=== PATIENT | male | born 1955 | race Caucasian/White ===

== ENCOUNTER → 2017-02-05 | Outpatient (CLI) | payer BC ==
[2014-10-28 14:07] VITALS: BP 144/72
--- NOTE | 2017-02-05 15:24 | CARD ---
APPROVED REPORT EXAM: Two-dimensional and M-mode echocardiogram with Doppler and color Doppler. Other Information Quality : Average Rhythm : NSR INDICATION Atrial Fibrillation 2D DIMENSIONS RVDd3.5 (2.9-3.5cm)Left Atrium(2D)3.8 (1.6-4.0cm) IVSd1.0 (0.7-1.1cm)Aortic Root(2D)3.5 (2.0-3.7cm) LVDd5.2 (3.9-5.9cm)LVOT Diameter2.2 (1.8-2.4cm) PWd1.0 (0.7-1.1cm)LVDs3.7 (2.5-4.0cm) FS (%) 28.2 %SV70.3 ml LVEF(%)54.2 (>50%) Aortic Valve AoV Peak Nirav.92.2cm/sAoV VTI18.7cm AO Peak GR.3.4mmHgLVOT Peak Nirav.70.9cm/s LVOT VTI 14.46cmAO Mean GR.2mmHg JOE (VMAX)2.62yf1AOC (VTI)2.98cm2 Mitral Valve MV E Avodbkyk45.2cm/sMV DECEL WBHV463sj MV A Wwdrsyhx90.3cm/sMV IFV67jl E/A Ratio0.7MV A Njbkmknq234bu MVA (PHT)2.62cm2 TDI E/Lateral E'8.9E/Medial E'10.7 Pulmonary Valve PV Peak Yuitayxi24.4cm/sPV Peak Grad.3mmHg RVOT VTI16.4cm Tricuspid Valve TR P. Djbwabdb578ol/sRAP ULXLNYMW0szYa TR Peak Gr.96hfBwUHEE92mjKn LEFT VENTRICLE The left ventricle is normal size. There is normal left ventricular wall thickness. Left ventricle sy stolic function is normal. The Ejection Fraction is 50-55%. There is normal LV segmental wall motion. Tissue Doppler imaging reveals mild left ventricular diastolic dysfunction. Transmitral Doppler flow pattern is Grade I-abnormal relaxation pattern. There is no ventricular septal defect visualized. RIGHT VENTRICLE The right ventricle is normal size. The right ventricular systolic function is normal. ATRIA The left atrium size is normal. The right atrium size is normal. The interatrial septum is intact wit h no evidence for an atrial septal defect or patent foramen ovale as noted on 2-D or Doppler imaging. AORTIC VALVE The aortic valve is normal in structure and function. The aortic valve is trileaflet. Doppler and Col or Flow revealed no significant aortic regurgitation. There is no significant aortic valvular stenosi s. MITRAL VALVE The mitral valve leaflets are thickened. There is no mitral valve stenosis. Doppler and Color Flow re vealed trace to mild mitral regurgitation. TRICUSPID VALVE The tricuspid valve is normal in structure and function. Doppler and Color Flow revealed trace tricus pid regurgitation. The PA pressure was estimated at 24 mmHg. There is no tricuspid valve stenosis. PULMONIC VALVE The pulmonic valve is not well visualized. Doppler and Color Flow revealed no pulmonic valvular regur gitation. There is no pulmonic valvular stenosis. GREAT VESSELS The aortic root is normal in size. The ascending aorta is normal in size. Normal pulmonary venous judie w (Doppler). The IVC is normal in size and collapses >50% with inspiration. PERICARDIAL EFFUSION There is no evidence of significant pericardial effusion. Critical Notification Critical Value: No <Conclusion> Left ventricle systolic function is normal. The Ejection Fraction is 50-55%. There is normal LV segmental wall motion. Transmitral Doppler flow pattern is Grade I-abnormal relaxation pattern. Trace to mild mitral regurgitation. Trace tricuspid regurgitation. The PA pressure was estimated at 24 mmHg. There is no evidence of significant pericardial effusion.
== END | disposition home or self-care (01) ==
LOC: ECHO 09:47
PROVIDERS: ATTEND Internal Medicine Cardiovascular Disease
DX: I08.1 Rheumatic disorders of both mitral and tricuspid valves (principal); I48.0 Paroxysmal atrial fibrillation
CPT/HCPCS: 93306

== ENCOUNTER → 2018-03-03 | Outpatient (CLI) | payer OTHER ==
[2014-10-28 14:07] VITALS: BP 144/72
--- NOTE | 2018-03-03 11:45 | CARD ---
MR#: [id number] Date of Study: 03/03/2018 Ordering Physician: PARDEEP BONNER, Referring Physician: PARDEEP BONNER Tech: Rhonda Shetty RDCS APPROVED REPORT EXAM: Two-dimensional and M-mode echocardiogram with Doppler and color Doppler. Other Information Quality : GoodHR: 64bpm Rhythm : NSR INDICATION Atrial Fibrillation RISK FACTORS Hypertension Smoking 2D DIMENSIONS RVDd3.6 (2.9-3.5cm)Left Atrium(2D)3.2 (1.6-4.0cm) IVSd1.2 (0.7-1.1cm)Aortic Root(2D)3.9 (2.0-3.7cm) LVDd5.4 (3.9-5.9cm)LVOT Diameter2.5 (1.8-2.4cm) PWd1.0 (0.7-1.1cm)LVDs3.7 (2.5-4.0cm) FS (%) 30.6 %SV80.9 ml LVEF(%)57.6 (>50%) M-Mode DIMENSIONS Left Atrium(MM)3.71 (2.5-4.0cm)Aortic Root3.51 (2.2-3.7cm) Aortic Valve AoV Peak Nirav.107.9cm/sAoV VTI23.1cm AO Peak GR.4.7mmHgLVOT Peak Nirav.84.3cm/s AO Mean GR.3mmHgAVA (VMAX)3.78cm2 JOE (VTI)3.90cm2 Mitral Valve MV E Spmytqfb84.7cm/sMV E Peak Gr.3mmHg MV DECEL UETK983apKW A Ximpqcwb933.5cm/s MV E Mean Gr.1mmHgE/A Ratio0.7 MV A Mvdcetiz521yt Pulmonary Valve PV Peak Hfwaqlwj02.9cm/s Pulmonary Vein S1 Lpoypxzy25.2cm/sD2 Ktcxkzmk15.3cm/s PVa ouqfbihp756cxjr LEFT VENTRICLE The left ventricle is normal size. There is borderline concentric left ventricular hypertrophy. The l eft ventricular systolic function is normal and the ejection fraction is within normal range. The Eje ction Fraction is 55-60%. There is normal LV segmental wall motion. The left ventricular diastolic fu nction and filling is normal for age. RIGHT VENTRICLE The right ventricle is normal size. There is normal right ventricular wall thickness. The right ventr icular systolic function is normal. ATRIA The left atrium size is normal. The right atrium size is normal. The interatrial septum is intact wit h no evidence for an atrial septal defect or patent foramen ovale as noted on 2-D or Doppler imaging. AORTIC VALVE The aortic valve is thickened but opens well. Doppler and Color Flow revealed no significant aortic r egurgitation. There is no significant aortic valvular stenosis. MITRAL VALVE The mitral valve is normal in structure and function. There is no evidence of mitral valve prolapse. There is no mitral valve stenosis. Doppler and Color-flow revealed trace mitral regurgitation. TRICUSPID VALVE The tricuspid valve is normal in structure and function. Doppler and Color Flow revealed trace tricus pid regurgitation. There is no tricuspid valve prolapse or vegetation. There is no tricuspid valve st enosis. PULMONIC VALVE The pulmonary valve is normal in structure and function. Doppler and Color Flow revealed trace pulmon ic valvular regurgitation. There is no pulmonic valvular stenosis. GREAT VESSELS The aortic root is normal in size. The IVC is normal in size and collapses >50% with inspiration. PERICARDIAL EFFUSION There is no evidence of significant pericardial effusion. Critical Notification Critical Value: No <Conclusion> The left ventricular systolic function is normal and the ejection fraction is within normal range. Th e Ejection Fraction is 55-60%. There is normal LV segmental wall motion. Signed by : Johnny Ward, Electronically Approved : 03/03/2018 11:44:43
== END | disposition home or self-care (01) ==
LOC: ECHO 10:24
PROVIDERS: ATTEND Internal Medicine Cardiovascular Disease
DX: I48.0 Paroxysmal atrial fibrillation (principal); I10 Essential (primary) hypertension; F17.200 Nicotine dependence, unspecified, uncomplicated
CPT/HCPCS: 93306

== ENCOUNTER → 2019-02-24 | Outpatient (CLI) | payer OTHER ==
[2014-10-28 14:07] VITALS: BP 144/72
--- NOTE | 2019-02-24 15:18 | CARD ---
MR#: [id number] Date of Study: 02/24/2019 Ordering Physician: PARDEEP BONNER, Referring Physician: PARDEEP BONNER Tech: Rhonda Shetty RDCS APPROVED REPORT EXAM: Two-dimensional and M-mode echocardiogram with Doppler and color Doppler. Other Information Quality : AverageHR: 76bpm Rhythm : PVC's INDICATION Atrial Fibrillation 2D DIMENSIONS RVDd3.2 (2.9-3.5cm)Left Atrium(2D)3.5 (1.6-4.0cm) IVSd1.3 (0.7-1.1cm)Aortic Root(2D)3.6 (2.0-3.7cm) LVDd5.1 (3.9-5.9cm)LVOT Diameter2.3 (1.8-2.4cm) PWd1.1 (0.7-1.1cm)LVDs3.6 (2.5-4.0cm) FS (%) 29.0 %SV69.4 ml LVEF(%)55.4 (>50%) M-Mode DIMENSIONS Left Atrium(MM)4.13 (2.5-4.0cm)Aortic Root3.29 (2.2-3.7cm) Aortic Valve AoV Peak Nirav.144.9cm/sAoV VTI25.3cm AO Peak GR.8.4mmHgLVOT Peak Nirav.96.8cm/s AO Mean GR.4mmHgAVA (VMAX)2.82cm2 JOE (VTI)2.80cm2 Mitral Valve MV E Ngxhymox53.7cm/sMV DECEL NCNB884ja MV A Ukvfitfq488.5cm/sE/A Ratio0.7 MV A Hpcwukrd577xw Pulmonary Valve PV Peak Hxdtfmkj41.2cm/s Tricuspid Valve TR P. Wkkhbsbq466vn/sRAP HNGDBPBR5avVv TR Peak Gr.94kfBkWFIH70mmRn LEFT VENTRICLE The left ventricle is normal size. There is mild concentric left ventricular hypertrophy. The left ve ntricular systolic function is normal and the ejection fraction is within normal range. The Ejection Fraction is 55-60%. There is normal LV segmental wall motion. Transmitral Doppler flow pattern is Gra de I-abnormal relaxation pattern. RIGHT VENTRICLE The right ventricle is normal size. There is normal right ventricular wall thickness. The right ventr icular systolic function is normal. ATRIA The left atrium size is normal. The right atrium size is normal. The interatrial septum is intact wit h no evidence for an atrial septal defect or patent foramen ovale as noted on 2-D or Doppler imaging. AORTIC VALVE The aortic valve is normal in structure and function. The aortic valve is trileaflet. Doppler and Col or Flow revealed no significant aortic regurgitation. There is no significant aortic valvular stenosi s. There is no aortic valvular vegetation. MITRAL VALVE The mitral valve is thickened but opens well. There is no evidence of mitral valve prolapse. There is no mitral valve stenosis. Doppler and Color-flow revealed mild mitral regurgitation. TRICUSPID VALVE The tricuspid valve is normal in structure and function. Doppler and Color Flow revealed trace tricus pid regurgitation. The PA pressure was estimated at 26 mmHg. There is no tricuspid valve prolapse or vegetation. There is no tricuspid valve stenosis. PULMONIC VALVE The pulmonic valve is not well visualized. GREAT VESSELS The aortic root is normal in size. The ascending aorta is normal in size. The IVC is normal in size a nd collapses >50% with inspiration. PERICARDIAL EFFUSION There is no evidence of significant pericardial effusion. Critical Notification Critical Value: No <Conclusion> The left ventricle is normal size. The left ventricular systolic function is normal and the ejection fraction is within normal range. The Ejection Fraction is 55-60%. There is mild concentric left ventricular hypertrophy. There is no significant aortic valvular stenosis. Doppler and Color Flow revealed no significant aortic regurgitation. Doppler and Color-flow revealed mild mitral regurgitation. Doppler and Color Flow revealed trace tricuspid regurgitation. The PA pressure was estimated at 26 mmHg. Signed by : Arcadio Hernandez MD Electronically Approved : 02/24/2019 15:18:02
== END | disposition home or self-care (01) ==
LOC: ECHO 13:41
PROVIDERS: ATTEND Internal Medicine Cardiovascular Disease
DX: I34.0 Nonrheumatic mitral (valve) insufficiency (principal); I11.9 Hypertensive heart disease without heart failure; I48.0 Paroxysmal atrial fibrillation
CPT/HCPCS: 93306

== ENCOUNTER → 2019-03-30 | Outpatient (CLI) | payer OTHER ==
[2014-10-28 14:07] VITALS: BP 144/72
--- NOTE | 2019-03-30 14:36 | RAD ---
MR#: [id number] Date of Study: 03/30/2019 Ordering Physician: PARDEEP BONNER, Referring Physician: PARDEEP BONNER, Tech: Guido Mason MBA, RDMS, RVT, RDCS, RTR APPROVED REPORT Patient Location : OUT-PATIENT Indications Lower Extremity Pain : Bilateral Findings Grayscale images of the bilateral greater saphenous veins are grossly unremarkable. The right great saphenous vein measures 5.7 mm and the left great saphenous vein measures 4.6 m. No e vidence of reflux in the bilateral greater saphenous veins. No reflux in the bilateral lesser saphenous veins. Critical Notification Critical Value: No <Conclusion> Negative for reflux. Signed by : Johnny Ward, Electronically Approved : 03/30/2019 14:36:19
== END | disposition home or self-care (01) ==
LOC: US 14:25
PROVIDERS: ATTEND Internal Medicine Cardiovascular Disease
DX: M79.604 Pain in right leg (principal); M79.605 Pain in left leg
CPT/HCPCS: 93970

== ENCOUNTER → 2019-11-03 | Outpatient (CLI) | payer MEDICARE, BC ==
[2014-10-28 14:07] VITALS: BP 144/72
[~2019-11-03] MED LIST: REGADENOSON 0.4 MG/5 ML DISP.SYRIN. IV ONE
--- NOTE | 2019-11-03 13:57 | RAD ---
MR#: [id number] Date of Study: 11/03/2019 Ordering Physician: PARDEEP BONNER, Referring Physician: MINE ROCHA Tech: RT James ReedR) (N) APPROVED REPORT Test Type: Pharmacological Stress Nurse/Tech: RT Brianna (R) (N) Test Indications: paroxysmal atrial fib Cardiac History: none Medications: see EHR Medical History: hypertension, smoker 40 years Resting ECG: sinus rhythm with PVC's Resting Heart Rate: 70 bpm Resting Blood Pressure: 142/86mmHg Pretest Chest Pain: None Nurse/Tech Notes Consent: The procedure was explained to the patient in lay terms. Informed consent was witnessed. Dariel eout was entered into [employer]. History and Stress Test performed by RT Brianna (tSef) (N) Pharm. Details Pharmacologic stress testing was performed using 0.4mg per 5ml of regadenoson given intravenously ove r 7-10 seconds. POST EXERCISE Reason for Termination: Infusion complete Max HR: 100 bpm Max Blood Pressure: 141/81mmHg Chest Pain: No. INTERPRETATION Stress EKG Conclusion: Baseline EKG showed sinus rhythm. No ischemic changes at peak stress. No arr hythmias. Imaging Protocol IMAGE PROTOCOL: Rest Tc-99m/stress Tc-99m 1 day Rest: Stress: Viability: Radiopharm.Tc99m YbluzjcmyAt09m Sestamibi Nuzx33kWy 33mCi Duration 15min. 10min. Img Date 11/03/2019 11/03/2019 Inj-Img Jcmr56tnj. 60min. Rest Admin Site:IV - Right AntecubitalAdministrator:RT Brianna (R)(N) Stress Admin Site: IV - Right AntecubitalAdministrator: KANDY Shaver, ARRT (R)(N) STRESS DATA End Diast. Vol.155.0mlAv. Heart Rate79.0bpm End Syst. Vol.48.0mlCO Index BSA0.0L/min Myocardial Kygr347.0gEject. Wltihpqy68.0% Stress Rates Pk. Fill Rate2.70EDV/secLVtime Pk. Fill 215.74msec Pk. Empty Rate3.88ESV/secLVtime Pk. Eject99.74msec 1/3 Pk. Fill1.01EDV/sec Stress Scores Regional WT2.00Summed WT5.00 Regional WM0.00Summed WM5.00 Study quality was good. Left Ventricular size was Normal at Rest and Stress. Lung uptake was . Left Ventricular ejection fraction is 65%. The rest and stress images show normal perfusion, normal contraction and thickening. LV Perf. Quant 17 Seg. SSS0.00 17 Seg. SRS6.00 17 Seg. SDS0.00 Stress Defect Extent (% LAD)0.00Rest Defect Extent (% LAD)11.90Rev. Defect Extent (% LAD)0.00 Stress Defect Extent (% LCX) 5.00Rest Defect Extent (% LCX)5.00Rev. Defect Extent (% LCX)5.00 Stress Defect Extent (% RCA)0.00Rest Defect Extent (% RCA)6.70Rev. Defect Extent (% RCA)0.00 Stress Defect Extent (% BOSTON)0.90Rest Defect Extent (% BOSTON)7.20Rev. Defect Extent (% BOSTON)0.90 Conclusion 1. Regadenoson cardioisotope stress test did not show any evidence of ischemia or infarct. 2. Normal left ventricular systolic function with ejection fraction calculated at 65%. 3. Low risk for cardiac events. Signed by : Pardeep Bonner, Electronically Approved : 11/03/2019 13:57:01
== END | disposition home or self-care (01) ==
LOC: NM 09:01
PROVIDERS: ATTEND Internal Medicine Cardiovascular Disease
DX: I48.0 Paroxysmal atrial fibrillation (principal)
CPT/HCPCS: 78452; 93017; A9500; J2785

== ENCOUNTER → 2020-04-10 | Outpatient (CLI) | payer MEDICARE, BC ==
[2014-10-28 14:07] VITALS: BP 144/72
--- NOTE | 2020-04-10 14:16 | KCIC ---
CT LOW DOSE LUNG SCREENING INDICATION: Lung cancer screening, smoker 40+ yrs., 1.5 pk/day. COMPARISON STUDY: None. TECHNIQUE: Unenhanced axial images were obtained through the lungs and upper abdomen using low dose technique. Coronal and sagittal multiplanar reformatted images were also obtained. PQRS compliance statement: One or more of the following individualized dose reduction techniques were utilized for this examination: 1. Automated exposure control 2. Adjustment of the mA and/or kV according to patient size 3. Use of iterative reconstruction technique FINDINGS: Lung Nodules: Middle lobe indeterminate 3 mm solid nodule (series 6 image 214). Lungs and Airways: No pulmonary mass or consolidation. Normal central airways. Pleura: Normal pleural spaces. Heart and Mediastinum: The visualized portions of the thyroid gland are normal in size and attenuation. No axillary or supraclavicular lymphadenopathy. No mediastinal, hilar or retrocrural lymphadenopathy. Normal cardiac size. No pericardial effusion. Coronary artery atherosclerotic disease. The great vessels of the thorax are normal. Abdomen: Hepatic steatosis. Bones and Soft Tissues: Degenerative changes of the spine. IMPRESSION: Indeterminate middle lobe 3 mm nodule. Lung-RADS Category: 2 Management Recommendation: Follow up low-dose chest CT in one year. Electronically signed by: Mack Morocho MD (04/10/2020 2:13 PM) [id number]
== END ==
LOC: KCIC CT 13:05
PROVIDERS: ATTEND Family Medicine
DX: Z12.2 Encounter for screening for malignant neoplasm of respiratory organs (principal); R91.1 Solitary pulmonary nodule; F17.210 Nicotine dependence, cigarettes, uncomplicated; K76.0 Fatty (change of) liver, not elsewhere classified; I25.10 Atherosclerotic heart disease of native coronary artery without angina pectoris; M47.819 Spondylosis without myelopathy or radiculopathy, site unspecified
CPT/HCPCS: G0297

== ENCOUNTER → 2020-06-20 | Outpatient (CLI) | payer MEDICARE, BC ==
[2014-10-28 14:07] VITALS: BP 144/72
[~2020-06-20] MED LIST changes: +AMLO-186 PO; +BUPR150T21 PO; +CARV25TA2 PO; +LISI40TA6 PO; +MULT-246 PO; -REGADENOSON 0.4 MG/5 ML DISP.SYRIN. IV ONE; +RIVA20TA2 PO; +VITA1TAB19 PO
== END ==
LOC: LAB 13:03
PROVIDERS: ATTEND Internal Medicine Gastroenterology
DX: Z01.812 Encounter for preprocedural laboratory examination (principal); R13.10 Dysphagia, unspecified; R63.4 Abnormal weight loss; Z20.828 Contact with and (suspected) exposure to other viral communicable diseases
CPT/HCPCS: U0003

== ENCOUNTER → 2020-06-23 | Day surgery (SDC) | payer MEDICARE, BC ==
[~2020-06-23] MED LIST changes: -BUPR150T21 PO; +BUPR150T7 PO; +HYDROmorphone 2 MG/ML VIAL IV PRN; +IV RINGERS,LACTATED 1000ML 1,000 ML IV SCH; +LIDOCAINE 2% PF 5 ML VIAL. ONE; +LISI40TA2 PO; -LISI40TA6 PO; +MORPHINE SULFATE 2 MG/ML VIAL. IV PRN; +ONDANSETRON PF 4 MG/2 ML VIAL. IV PRN; +PROCHLORPERAZINE 10 MG/2 ML VIAL. IV PRN; +PROPOFOL 10 MG/ML (20ML) VIAL. IV ONE; +fentaNYL PF VIAL 100 MCG/2 ML VIAL IV PRN
[2020-06-23 10:28] VITALS: BP 157/74
--- NOTE | 2020-06-23 11:19 | HP ---
ADMIT DATE: 06/23/2020 UPDATED HISTORY AND PHYSICAL REFERRING PHYSICIAN: Shimon Yee MD HISTORY OF PRESENT ILLNESS: A 64-year-old male, whose past medical history is significant for hypertension, CHF, sleep apnea, seen with a 25-pound weight loss with dysphagia for solids in the substernal location. There has been no melena, no hematochezia. Constipation has been more problematic as well. No family history of GI cancer is noted and he has had no prior endoscopies. With continued issues, he requests additional evaluation. PAST MEDICAL HISTORY: Hypertension, CHF, sleep apnea, dysphagia. ALLERGIES: None. MEDICATIONS: Include amlodipine, bupropion, carvedilol, lisinopril, multivitamin, Xarelto, and vitamin B. FAMILY HISTORY: Significant for breast cancer with mother, diabetes with father, hypertension with father, and [place] with father. SOCIAL HISTORY: He is a current smoker, social drinker. PAST SURGICAL HISTORY: Significant for eye and hernia surgery. REVIEW OF SYSTEMS: Per records. PHYSICAL EXAMINATION: GENERAL: Reveals a well-nourished, well-developed, male. VITAL SIGNS: Temperature is 98.2, pulse is 67, respiratory rate is 18. LUNGS: Clear. CARDIOVASCULAR: Reveals an S1, S2 without S3, S4 or appreciable murmur. ABDOMEN: Reveals a soft abdomen, normal bowel sounds without appreciable hepatosplenomegaly. IMPRESSION AND PLAN: 1. Dysphagia with weight loss. Etiology is to be determined. Differential includes peptic stricture, Terry's, malignancy, achalasia, eosinophilic esophagitis and/or Schatzki's ring. We will therefore recommend upper endoscopy. 2. Constipation and weight loss. Differential includes irritable bowel syndrome, colon cancer, diverticular disease, inflammatory bowel disease. Therefore, recommend colonoscopy. Risks and benefits have been discussed. The patient is willing to proceed. MIKI SHIN MD DR: RICKY/rishi JOB#: [id number] / [id number]
== END | disposition home or self-care (01) ==
LOC: ENDOS 08:28
PROVIDERS: ATTEND Internal Medicine Gastroenterology
DX: Z12.11 Encounter for screening for malignant neoplasm of colon (principal); R13.10 Dysphagia, unspecified; K64.0 First degree hemorrhoids; K57.30 Diverticulosis of large intestine without perforation or abscess without bleeding; K63.5 Polyp of colon; K63.89 Other specified diseases of intestine; K31.89 Other diseases of stomach and duodenum; I11.0 Hypertensive heart disease with heart failure; I50.9 Heart failure, unspecified; G47.30 Sleep apnea, unspecified; I48.91 Unspecified atrial fibrillation; F17.210 Nicotine dependence, cigarettes, uncomplicated; Z79.899 Other long term (current) drug therapy; Z98.890 Other specified postprocedural states; Z80.3 Family history of malignant neoplasm of breast; Z82.49 Family history of ischemic heart disease and other diseases of the circulatory system; Z83.3 Family history of diabetes mellitus
CPT/HCPCS: 43239; 43450; 45385; 88305; 88342; J2704; 45384

== ENCOUNTER → 2020-07-18 | Outpatient (CLI) | payer MEDICARE, BC ==
[2020-06-23 10:28] VITALS: BP 157/74
[~2020-07-18] MED LIST changes: +BUPR150T21 PO; -BUPR150T7 PO; -HYDROmorphone 2 MG/ML VIAL IV PRN; -IV RINGERS,LACTATED 1000ML 1,000 ML IV SCH; -LIDOCAINE 2% PF 5 ML VIAL. ONE; -LISI40TA2 PO; +LISI40TA6 PO; -MORPHINE SULFATE 2 MG/ML VIAL. IV PRN; -ONDANSETRON PF 4 MG/2 ML VIAL. IV PRN; -PROCHLORPERAZINE 10 MG/2 ML VIAL. IV PRN; -PROPOFOL 10 MG/ML (20ML) VIAL. IV ONE; -fentaNYL PF VIAL 100 MCG/2 ML VIAL IV PRN
--- NOTE | 2020-07-18 16:49 | CARD ---
MR#: [id number] Date of Study: 07/18/2020 Ordering Physician: PARDEEP BONNER, Referring Physician: PARDEEP BONNER, Tech: Marah Robb RDCS APPROVED REPORT EXAM: Two-dimensional and M-mode echocardiogram with Doppler and color Doppler. Other Information Quality : Fair INDICATION Paroxysmal Atrial Fibrillation 2D DIMENSIONS RVDd2.5 (2.9-3.5cm)Left Atrium(2D)2.9 (1.6-4.0cm) IVSd0.9 (0.7-1.1cm)Aortic Root(2D)3.3 (2.0-3.7cm) LVDd5.0 (3.9-5.9cm)LVOT Diameter2.3 (1.8-2.4cm) PWd0.9 (0.7-1.1cm)LVDs3.8 (2.5-4.0cm) FS (%) 24.4 %SV57.4 ml LVEF(%)48.0 (>50%) Aortic Valve AoV Peak Nirav.103.9cm/sAoV VTI23.2cm AO Peak GR.4.3mmHgLVOT Peak Nirav.86.5cm/s LVOT VTI 20.71cmAO Mean GR.2mmHg JOE (VMAX)3.16uy5VLG (VTI)3.83cm2 Mitral Valve MV E Dmhkmexf14.1cm/sMV DECEL CUTQ968er MV A Pkjengli66.9cm/sMV CSH36an E/A Ratio1.2MVA (PHT)3.71cm2 TDI E/Lateral E'11.9E/Medial E'13.1 Tricuspid Valve TR P. Otyzysqm592gn/sRAP DIYNIYGD4fyYx TR Peak Gr.11ziFsIJBY53yfSu Pulmonary Vein S1 Vxurhhia33.8cm/sD2 Iulqajlu29.8cm/s LEFT VENTRICLE The left ventricle is normal size. There is normal left ventricular wall thickness. The Ejection Frac tion is low normal at 50% Septal motion consistent with conduction abnormality. Transmitral Doppler f low pattern is Grade I-abnormal relaxation pattern. RIGHT VENTRICLE The right ventricle is normal size. The right ventricular systolic function is normal. ATRIA The left atrium size is normal. The right atrium size is normal. The interatrial septum is intact wit h no evidence for an atrial septal defect or patent foramen ovale as noted on 2-D or Doppler imaging. AORTIC VALVE The aortic valve is calcified but opens well. Doppler and Color Flow revealed no significant aortic r egurgitation. There is no significant aortic valvular stenosis. MITRAL VALVE The mitral valve is calcified but opens well. The posterior mitral valve leaflet is borderline propla psed. There is no mitral valve stenosis. Doppler and Color-flow revealed trace mitral regurgitation. TRICUSPID VALVE The tricuspid valve is normal in structure and function. Doppler and Color Flow revealed trace tricus pid regurgitation. The PA pressure was estimated at 35 mmHg. There is no tricuspid valve stenosis. PULMONIC VALVE The pulmonic valve is not well visualized. Doppler and Color Flow revealed no pulmonic valvular regur gitation. There is no pulmonic valvular stenosis. GREAT VESSELS The aortic root is normal in size. The ascending aorta is not well seen. The IVC is dilated and colla pses <50% with inspiration. PERICARDIAL EFFUSION There is no evidence of significant pericardial effusion. Critical Notification Critical Value: No <Conclusion> The Ejection Fraction is low normal at 50% Septal motion consistent with conduction abnormality. Doppler and Color Flow revealed trace tricuspid regurgitation. The PA pressure was estimated at 35 mm Hg. Signed by : Johnny Ward, Electronically Approved : 07/18/2020 16:48:51
== END ==
LOC: ECHO 10:00
PROVIDERS: ATTEND Internal Medicine Cardiovascular Disease
DX: I08.0 Rheumatic disorders of both mitral and aortic valves (principal); I48.0 Paroxysmal atrial fibrillation
CPT/HCPCS: 93306

== ENCOUNTER → 2020-08-29 | Outpatient (CLI) | payer MEDICARE, BC ==
[2020-06-23 10:28] VITALS: BP 157/74
== END ==
LOC: LAB 11:42
PROVIDERS: ATTEND Internal Medicine Gastroenterology
DX: Z01.812 Encounter for preprocedural laboratory examination (principal); K25.9 Gastric ulcer, unspecified as acute or chronic, without hemorrhage or perforation; Z20.822 Contact with and (suspected) exposure to COVID-19
CPT/HCPCS: U0003

== ENCOUNTER → 2020-08-31 | Day surgery (SDC) | payer MEDICARE, BC ==
[~2020-08-31] MED LIST changes: +IV RINGERS,LACTATED 1000ML 1,000 ML IV SCH; +LIDOCAINE 2% PF 5 ML VIAL. ONE; +PROPOFOL 10 MG/ML (20ML) VIAL. IV ONE
[2020-08-31 13:11] VITALS: BP 119/76
--- NOTE | 2020-08-31 16:19 | HP ---
ADMIT DATE: 08/31/2020 REFERRING PHYSICIAN: Shimon Yee M.D. REASON: History of gastric ulcer and dysphagia. HISTORY OF PRESENT ILLNESS: This is a 65-year-old male with past medical history significant for Terry's, gastric ulcer, colonic polyps, hypertension, sleep apnea, seen for interval endoscopy to confirm ulcer healing. 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 There are no repeat biopsies for Terry's will be obtained; however dilatation will be performed for dysphagia, has been on surveillance. Medication was omeprazole and will undergo the EGD to confirm healing at this time. Weight and appetite are good. He is otherwise without additional complaints. PAST MEDICAL HISTORY: Terry's, gastric ulcer, colonic polyps, hypertension, congestive heart failure, sleep apnea. ALLERGIES: None. MEDICATIONS: Include amlodipine, bupropion, carvedilol, lisinopril, multivitamin, Xarelto, B complex and omeprazole. FAMILY AND SOCIAL HISTORY: Significant for breast cancer with mother, diabetes in his father, hypertension with father, [place] with his father. PAST SURGICAL HISTORY: Status post eye surgery, hernia surgery. REVIEW OF SYSTEMS: Per records. PHYSICAL EXAMINATION: GENERAL: Reveals a well-nourished, well-developed male, alert, cooperative, in no acute distress. VITAL SIGNS: Temperature 97.5, pulse 72, respiratory rate is 20. LUNGS: Clear. CARDIOVASCULAR: Reveals an S1, S2 without S3, S4 or appreciable murmur. ABDOMEN: With a soft abdomen, normal bowel sounds, without appreciable hepatosplenomegaly. EXTREMITIES: Reveals no cyanosis, clubbing or edema. IMPRESSION: 1. Gastric ulcers. We will recommend surveillance EGD at this time to confirm healing as 2-4% gastric ulcers are early gastric cancers. 2. Dysphagia with history of Terry's. Dilatation. Risks, benefits were discussed. The patient is willing to proceed. MIKI SHIN MD DR: RICKY/rishi JOB#: [id number] / [id number]
== END | disposition home or self-care (01) ==
LOC: ENDOS 10:54
PROVIDERS: ATTEND Internal Medicine Gastroenterology
DX: R13.10 Dysphagia, unspecified (principal); K29.50 Unspecified chronic gastritis without bleeding; R10.13 Epigastric pain; I11.0 Hypertensive heart disease with heart failure; I50.9 Heart failure, unspecified; G47.30 Sleep apnea, unspecified; I48.91 Unspecified atrial fibrillation; J44.9 Chronic obstructive pulmonary disease, unspecified; K21.9 Gastro-esophageal reflux disease without esophagitis; M19.90 Unspecified osteoarthritis, unspecified site; F17.210 Nicotine dependence, cigarettes, uncomplicated; Z86.010 Personal history of colon polyps; Z79.899 Other long term (current) drug therapy; Z98.890 Other specified postprocedural states; Z80.3 Family history of malignant neoplasm of breast; Z83.3 Family history of diabetes mellitus; Z82.49 Family history of ischemic heart disease and other diseases of the circulatory system
CPT/HCPCS: 43450; J2704

== ENCOUNTER → 2021-07-31 | Outpatient (CLI) | payer MEDICARE, BC ==
[2020-08-31 13:11] VITALS: BP 119/76
[~2021-07-31] MED LIST changes: -IV RINGERS,LACTATED 1000ML 1,000 ML IV SCH; -LIDOCAINE 2% PF 5 ML VIAL. ONE; -PROPOFOL 10 MG/ML (20ML) VIAL. IV ONE; +REGADENOSON 0.4 MG/5 ML DISP.SYRIN. IV ONE
--- NOTE | 2021-07-31 18:57 | RAD ---
MR#: [id number] Date of Study: 07/31/2021 Ordering Physician: PARDEEP BONNER, Referring Physician: MINE ROCHA Tech: RT Hoa Reed) (N) APPROVED REPORT Test Type: Pharmacological Stress Nurse/Tech: KAILASH MURGUIA Test Indications: PAF Cardiac History: PAF- SEE EMR Medications: SEE EMR Medical History: AFIB, SMOKER- 1.5PPD- SEE EMR Resting ECG: SR W/ PAC'S Resting Heart Rate: 55 bpm Resting Blood Pressure: 123/67mmHg Pretest Chest Pain: No chest pain Nurse/Tech Notes S1,S2, IRREGULAR RATE AT TIMES, BP STABLE, DENIED CHEST PAIN OR SHORTNESS OF BREATH AT THE TIME OF TE STING. Consent: The procedure was explained to the patient in lay terms. Informed consent was witnessed. Dariel eout was entered into [facility]. History and Stress Test performed by RT Brianna (R) (N) Pharm. Details Pharmacologic stress testing was performed using 0.4mg per 5ml of regadenoson given intravenously ove r 7-10 seconds. Stress Symptoms PT HAD SLIGHT SHORTNESS OF BREATH DURING INITIATION OF TESTING. VSS. NO OTHER SIGNIFICANT COMPLAINTS. POST EXERCISE Reason for Termination: Infusion complete Max HR: 76 bpm Max Blood Pressure: 123/67mmHg Blood Pressure response to exercise: Normal blood pressure response during stress. Heart Rate response to exercise: WNL Chest Pain: No. Arrhythmia: . NO SIGNIFICANT CHANGES NOTED FROM BASELINE EKG. INTERPRETATION Stress EKG Conclusion: No evidence of stress induced EKG changes. Imaging Protocol IMAGE PROTOCOL: Rest Tc-99m/stress Tc-99m 1 day Rest: Stress: Viability: Radiopharm.Tc99m DaayyvsypZl34m Sestamibi Ilrt99sUa 30.8mCi Duration 15min. 10min. Img Date 07/31/2021 07/31/2021 Inj-Img Jjok73trp. 60min. Rest Admin Site:IV - Left AntecubitalAdministrator:RT Hoa Rosenthal)(N) Stress Admin Site: IV - Left AntecubitalAdministrator: Willow Pina, RT (R)(N) STRESS DATA End Diast. Vol.169.0mlAv. Heart Rate60.0bpm End Syst. Vol.58.0mlCO Index BSA6.7L/min Myocardial Nqig577.0gEject. Fktplpuj82.0% Stress Rates Pk. Fill Rate2.05EDV/secLVtime Pk. Fill 144.38msec Pk. Empty Rate2.35ESV/secLVtime Pk. Kopql363.63msec 06/18 Pk. Fill1.43EDV/sec Stress Scores Regional WT0.00Summed WT3.00 Regional WM0.00Summed WM2.00 The rest and stress images show normal perfusion, normal contraction and thickening. LV Perf. Quant 17 Seg. SSS0.00 17 Seg. SRS1.00 17 Seg. SDS0.00 Stress Defect Extent (% LAD)0.00Rest Defect Extent (% LAD)0.00Rev. Defect Extent (% LAD)0.00 Stress Defect Extent (% LCX) 6.30Rest Defect Extent (% LCX)0.00Rev. Defect Extent (% LCX)5.00 Stress Defect Extent (% RCA)0.00Rest Defect Extent (% RCA)0.00Rev. Defect Extent (% RCA)0.00 Stress Defect Extent (% BOSTON)1.10Rest Defect Extent (% BOSTON)0.00Rev. Defect Extent (% BOSTON)0.90 Other Information Quality:Average Risk Assessment: Low Risk Conclusion 1. No evidence of EKG changes with stress testing. 2. Normal perfusion at stress/rest. 3. Low risk study. 4. EF > 60%. Signed by : Johnny Ward, Electronically Approved : 07/31/2021 18:57:45
--- NOTE | 2021-07-31 19:45 | CARD ---
MR#: [id number] Date of Study: 07/31/2021 Ordering Physician: PARDEEP BONNER, Referring Physician: PARDEEP BONNER Tech: Hermelinda Marquez [facility] APPROVED REPORT EXAM: Two-dimensional and M-mode echocardiogram with Doppler and color Doppler. Other Information Quality : AverageHR: 52bpm Rhythm : NSR INDICATION COPD Cardiomyopathy RISK FACTORS Hypertension 2D DIMENSIONS RVDd4.5 (2.9-3.5cm)Left Atrium(2D)3.3 (1.6-4.0cm) IVSd1.4 (0.7-1.1cm)Aortic Root(2D)3.9 (2.0-3.7cm) LVDd5.0 (3.9-5.9cm)LVOT Diameter2.4 (1.8-2.4cm) PWd1.3 (0.7-1.1cm)LVDs3.8 (2.5-4.0cm) FS (%) 23.3 %SV54.9 ml LVEF(%)46.4 (>50%) Aortic Valve AoV Peak Nirav.95.7cm/sAoV VTI22.4cm AO Peak GR.3.7mmHgLVOT Peak Nirav.74.5cm/s AO Mean GR.2mmHgAVA (VMAX)3.57cm2 Mitral Valve MV E Oidewnkv90.8cm/sMV DECEL BWDY018vg MV A Gfhuphoj51.2cm/sE/A Ratio1.2 Pulmonary Valve PV Peak Dpufmoub77.4cm/s Tricuspid Valve TR P. Yowmmitu533ta/sTR Peak Gr.29mmHg LEFT VENTRICLE The left ventricle is normal size. There is mild concentric left ventricular hypertrophy. The left ve ntricular systolic function is normal and the ejection fraction is within normal range. Estimated eje ction fraction 50-55%. There is normal LV segmental wall motion. The left ventricular diastolic funct ion and filling is normal for age. RIGHT VENTRICLE The right ventricle is normal size. There is normal right ventricular wall thickness. The right ventr icular systolic function is normal. ATRIA The left atrium is moderately dilated. The right atrium size is normal. The interatrial septum is int act with no evidence for an atrial septal defect or patent foramen ovale as noted on 2-D or Doppler i maging. AORTIC VALVE The aortic valve is normal in structure and function. Doppler and Color Flow revealed no significant aortic regurgitation. There is no significant aortic valvular stenosis. MITRAL VALVE The mitral valve is normal in structure and function. There is no evidence of mitral valve prolapse. There is no mitral valve stenosis. Doppler and Color-flow revealed moderate mitral regurgitation. TRICUSPID VALVE The tricuspid valve is normal in structure and function. Doppler and Color Flow revealed trace to mil d tricuspid regurgitation. Estimated PAP 32 mmHg. There is no tricuspid valve stenosis. PULMONIC VALVE Doppler and Color Flow revealed no pulmonic valvular regurgitation. There is no pulmonic valvular madhu nosis. GREAT VESSELS The aortic root is normal in size. The ascending aorta is normal in size. The IVC is normal in size a nd collapses >50% with inspiration. PERICARDIAL EFFUSION There is no evidence of significant pericardial effusion. Critical Notification Critical Value: No <Conclusion> The left ventricular systolic function is normal and the ejection fraction is within normal range. E stimated ejection fraction 50-55%. There is normal LV segmental wall motion. Doppler and Color-flow revealed moderate mitral regurgitation. Signed by : Johnny Ward, Electronically Approved : 07/31/2021 19:45:12
== END ==
LOC: NM 09:04
PROVIDERS: ATTEND Internal Medicine Cardiovascular Disease
DX: I08.1 Rheumatic disorders of both mitral and tricuspid valves (principal); I48.0 Paroxysmal atrial fibrillation; I42.9 Cardiomyopathy, unspecified; J44.9 Chronic obstructive pulmonary disease, unspecified
CPT/HCPCS: 78452; 93017; 93306; A9500; J2785; C8929